=== PATIENT | female | born 1985 ===

== ENCOUNTER 2019-02-08 16:56 | Emergency (ER) | payer OTHER ==
[2019-02-08 17:19] VITALS: TEMP 98.4
[2019-02-08 17:51] LABS: BASO % 0.3 % (0.0-2.0); EOS # 0.2 K/uL (0.0-0.7); EOS % 2.4 % (0.0-4.0); HEMOGLOBIN 14.6 g/dL (11.0-16.0); LYMPH # 1.4 K/uL (1.0-4.3); LYMPH % 14.8 % (20.0-40.0); MEAN CELL VOLUME 87.8 fL (81.0-99.0); MEAN CORPUSCULAR HEMOGLOBIN 30.4 pg (27.0-31.0); MEAN CORPUSCULAR HGB CONC 34.6 g/dL (33.0-37.0); MONO # 0.6 K/uL (0.0-0.8); NEUT # 7.1 K/uL (1.8-7.0); NEUT % 76.5 % (50.0-75.0); NRBC % 0.1 % (0.0-2.0); RBC 4.79 Mil/uL (3.80-5.20); RED CELL DISTRIBUTION WIDTH 12.3 % (11.5-14.5); WHITE BLOOD COUNT 9.3 K/uL (4.8-10.8)
[2019-02-08 18:03] LABS: ALB/GLOB RATIO 1.4 (1.0-2.1); ALBUMIN 5.1 g/dL (3.5-5.0); ALT/SGPT 20 U/L (9-52); AST/SGOT 33 U/L (14-36); BLOOD UREA NITROGEN 9 mg/dL (7-17); CALCIUM 9.9 mg/dl (8.6-10.4); GFR NON-AFRICAN AMERICAN > 60; LIPASE 329 U/L (23-300)
[2019-02-08] MEDS ORDERED: Aluminum Hydroxide/Magnesium Hydroxide Susp (30 mL) PO STA (18:25)
[2019-02-08] MEDS ORDERED: Aluminum Hydroxide/Magnesium Hydroxide Susp (30 mL) ONE (18:31)
[2019-02-08 18:33] LABS: SQUAMOUS EPITHIAL 3 /hpf (0-5); URINE BACTERIA RARE (<OCC); URINE BILIRUBIN NEGATIVE (NEGATIVE); URINE BLOOD 3+ (NEGATIVE); URINE CLARITY Hazy (Clear); URINE COLOR Yellow (YELLOW); URINE GLUCOSE (UA) NORMAL (Normal); URINE LEUKOCYTE ESTERASE NEG Leu/uL (Negative); URINE PROTEIN NEGATIVE (NEGATIVE); URINE UROBILINOGEN NORMAL mg/dL (0.2-1.0)
--- NOTE | 2019-02-08 18:35 | C.PDOC ---
History Of Present Illness 33 year old healthy female presents to the emergency department with complaints of epigastric pain, vomiting, and nausea for the last 3-4 days. Patient states that she was seen by Dr. Barbosa and started on Protonix, with no improvement of symptoms. Patient states that her pain was "so bad" that she called an on-call doctor last night from Dr Barbosa's service, and he told her to take Zantac and Maalox. Patient reports she is still having pain and vomited once today despite taking those medications. no fever or chills. <Tana Stroud - Last Filed: 02/08/19 18:51> History Per: Patient History/Exam Limitations: no limitations Onset/Duration Of Symptoms: Days (3-4) Current Symptoms Are (Timing): Still Present Location Of Pain/Discomfort: Epigastric Quality Of Discomfort: "Pain" Associated Symptoms: Nausea, Vomiting. denies: Fever, Chills <Tana Stroud - Last Filed: 02/08/19 18:51> <Mark Greenfield - Last Filed: 02/08/19 23:12> Time Seen by Provider: 02/08/19 17:12 Chief Complaint (Nursing): Abdominal Pain Past Medical History Reviewed: Historical Data, Nursing Documentation, Vital Signs Vital Signs: Last Vital Signs Temp 98.4 F 02/08/19 17:02 Pulse 113 H 02/08/19 17:02 Resp 20 02/08/19 17:02 BP 136/86 02/08/19 17:02 Pulse Ox 99 02/08/19 17:02 Primary Care Provider: Non [facility] Provider, - Medical History PMH: No Chronic Diseases Surgical History: No Surg Hx Family History: States: No Known Family Hx - Social History Hx Alcohol Use: No Hx Substance Use: No - Immunization History Hx Tetanus Toxoid Vaccination: No Hx Influenza Vaccination: No Hx Pneumococcal Vaccination: No <Tana Stroud - Last Filed: 02/08/19 18:51> Vital Signs: Last Vital Signs Temp 98.4 F 02/08/19 17:02 Pulse 74 02/08/19 22:14 Resp 18 02/08/19 22:14 BP 105/67 02/08/19 22:14 Pulse Ox 100 02/08/19 22:14 <Mark Greenfield - Last Filed: 02/08/19 23:12> Review Of Systems Constitutional: Negative for: Fever, Chills Respiratory: Negative for: Cough, Shortness of Breath Gastrointestinal: Positive for: Nausea, Vomiting, Abdominal Pain. Negative for: Diarrhea Neurological: Negative for: Weakness, Numbness <Tana Stroud - Last Filed: 02/08/19 18:51> Physical Exam - Physical Exam Appears: Well, Non-toxic, No Acute Distress Skin: Normal Color, Warm, Dry Head: Atraumatic, Normacephalic Eye(s): bilateral: Normal Inspection, PERRL, EOMI Nose: Normal Oral Mucosa: Dry Neck: Normal, Supple Chest: Symmetrical, No Tenderness Cardiovascular: Rhythm Regular, No Murmur Respiratory: Normal Breath Sounds, No Rales, No Rhonchi, No Wheezing Gastrointestinal/Abdominal: Soft, Tenderness (epigastric), No Guarding, No Rebound Extremity: Normal ROM Neurological/Psych: Oriented x3 <Tana Stroud - Last Filed: 02/08/19 18:51> ED Course And Treatment - Laboratory Results Result Diagrams: 02/08/19 17:45 02/08/19 17:45 Lab Results: Total Bilirubin 1.7 mg/dL (0.2-1.3) H 02/08/19 17:45 AST 33 U/L (14-36) 02/08/19 17:45 ALT 20 U/L (9-52) 02/08/19 17:45 Alkaline Phosphatase 65 U/L (38-126) 02/08/19 17:45 Total Protein 8.7 g/dL (6.3-8.3) H 02/08/19 17:45 Albumin 5.1 g/dL (3.5-5.0) H 02/08/19 17:45 Globulin 3.7 gm/dL (2.2-3.9) 02/08/19 17:45 Albumin/Globulin Ratio 1.4 (1.0-2.1) 02/08/19 17:45 Lipase 329 U/L (23-300) H 02/08/19 17:45 O2 Sat by Pulse Oximetry: 99 (RA) Pulse Ox Interpretation: Normal <Tana Stroud - Last Filed: 02/08/19 18:51> - Laboratory Results Result Diagrams: 02/08/19 17:45 02/08/19 17:45 Lab Results: Total Bilirubin 1.7 mg/dL (0.2-1.3) H 02/08/19 17:45 AST 33 U/L (14-36) 02/08/19 17:45 ALT 20 U/L (9-52) 02/08/19 17:45 Alkaline Phosphatase 65 U/L (38-126) 02/08/19 17:45 Total Protein 8.7 g/dL (6.3-8.3) H 02/08/19 17:45 Albumin 5.1 g/dL (3.5-5.0) H 02/08/19 17:45 Globulin 3.7 gm/dL (2.2-3.9) 02/08/19 17:45 Albumin/Globulin Ratio 1.4 (1.0-2.1) 02/08/19 17:45 Lipase 329 U/L (23-300) H 02/08/19 17:45 Urine Color Yellow (YELLOW) 02/08/19 18:06 Urine Clarity Hazy (Clear) 02/08/19 18:06 Urine pH 6.0 (5.0-8.0) 02/08/19 18:06 Ur Specific [place] 1.005 (1.003-1.030) 02/08/19 18:06 Urine Protein Negative mg/dL (NEGATIVE) 02/08/19 18:06 Urine Glucose (UA) Normal mg/dL (Normal) 02/08/19 18:06 Urine Ketones Trace mg/dL (NEGATIVE) 02/08/19 18:06 Urine Blood 3+ (NEGATIVE) H 02/08/19 18:06 Urine Nitrate Negative (NEGATIVE) 02/08/19 18:06 Urine Bilirubin Negative (NEGATIVE) 02/08/19 18:06 Urine Urobilinogen Normal mg/dL (0.2-1.0) 02/08/19 18:06 Ur Leukocyte Esterase Neg Nicole/uL (Negative) 02/08/19 18:06 Urine WBC (Auto) 1 /hpf (0-5) 02/08/19 18:06 Urine RBC (Auto) 14 /hpf (0-3) H 02/08/19 18:06 Ur Squamous Epith Cells 3 /hpf (0-5) 02/08/19 18:06 Urine Bacteria Rare (<OCC) 02/08/19 18:06 Pulse Ox Interpretation: Normal Progress Note: spoke with the pt and she is aware of the cystic structure on her left adnexa. 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 Tolerating po Reevaluation Time: 23:06 Reassessment Condition: Improved <Mark Greenfield - Last Filed: 02/08/19 23:12> Medical Decision Making Medical Decision Making: Plan: Chemistry CBC Maalox Pepcid Zofran POC Urine Urinalysis US Abdomen <Tana Stroud - Last Filed: 02/08/19 18:51> Disposition Counseled Patient/Family Regarding: Studies Performed, Diagnosis, Need For Followup, Rx Given - Disposition Disposition Time: 19:00 <Tana Stroud - Last Filed: 02/08/19 18:51> Counseled Patient/Family Regarding: Studies Performed, Diagnosis, Need For Followup, Rx Given <Mark Greenfield - Last Filed: 02/08/19 23:12> - Disposition Referrals: Morgan Brabosa MD [Staff Provider] - [facility] [Outside] [facility] [Outside] Disposition: HOME/ ROUTINE Condition: FAIR Additional Instructions: Please return if symptoms recur. 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 - Scribe Statement The provider has reviewed the documentation as recorded by the Scribe (Edward Pavon) All medical record entries made by the Scribe were at my direction and pers onally dictated by me. I have reviewed the chart and agree that the record accurately reflects my personal performance of the history, physical exam, medical decision making, and the department course for this patient. I have also personally directed, reviewed, and agree with the discharge instructions and disposition. <Tana Stroud - Last Filed: 02/08/19 18:51> Physician Patient Turnover Patient Signed Over To: Mark Greenfield Handoff Comments: f/u ab ultrasound. re-eval pt, contact Dr Barbosa if needed <Tana Stroud - Last Filed: 02/08/19 18:51>
[2019-02-08 19:35] VITALS: O2SAT 100
[2019-02-08] MEDS ORDERED: Iodixanol 320 MG/ML 100 ML BOTTLE IV ONE (20:43)
[2019-02-08 22:14] VITALS: RESP 18
[2019-02-08 23:29] VITALS: BP 103/60; PULSE 80
--- NOTE | 2019-02-09 08:07 | CT ---
CT abdomen and pelvis HISTORY: Abdominal pain. Elevated lipase. Comparison: None available. TECHNIQUE: Multiple contiguous axial images were performed through the abdomen and pelvis with the use of intravenous contrast. Subsequently, sagittal and coronal reformatted images were obtained. This CT exam was performed using one or more of the following dose reduction techniques: Automated exposure control, adjustment of the mA and/or kV according to patient size, and/or use of iterative reconstruction technique. Findings: Lung bases are clear. No pleural or pericardial effusion. 6 millimeter low-attenuation lesion at the dome of the right hepatic lobe on series 3, image 18, too small to adequately characterize. Additional 7 millimeter low-attenuation lesion seen within the medial aspect of the right hepatic lobe on series 3, image 30 too small to adequately characterize. Gallbladder is preserved. Spleen is preserved. Adrenal glands are preserved. Pancreas is preserved. Upper abdominal bowel demonstrates a few distended and or mildly thickened loops of small bowel in the upper mid abdomen which may represent an enteritis. Clinical correlation. Right kidney: No calculi or hydronephrosis. Left Kidney: No calculi or hydronephrosis. Urinary bladder is preserved. Heterogeneous uterus and endometrium. Prominent bilobed cystic lesion seen at the level of the left adnexa measuring to 5.3 centimeters. Correlation with pelvic ultrasound may be helpful if clinically indicated. Underdistended and or mildly thickened sigmoid colon. Additional scattered areas of underdistention and or mild thickening at the level of the descending colon. Fluid-filled right hemicolon which may represent diarrheal illness. Few shotty mesenteric lymph nodes in the right demetrice abdomen. Appendix is visualized and is within normal limits. Few shotty para-aortic and inguinal lymph nodes. Mild degenerative changes in the spine. Impression: 1. 5.3 centimeter bilobed cystic lesion of the left adnexa. Correlation with pelvic ultrasound is recommended for further characterization of this lesion. Clinical correlation. 2. Distended and or mildly thickened loops of small bowel seen within the upper and mid abdomen which may represent an enteritis. Clinical correlation. 3. Fluid-filled right hemicolon which may represent diarrheal illness. Clinical correlation. 4. Few scattered areas of underdistention and or mild thickening in the left hemicolon as described above. Clinical correlation. Additional findings as above. A preliminary report was generated at 10:34 p.m. on 02/08/[address] Juan Wei from [employer]
--- NOTE | 2019-02-09 08:42 | US ---
Date of service: 02/08/2019 HISTORY: epigastric pain, abnl lft and lipase COMPARISON: None. TECHNIQUE: Sonographic evaluation of the right upper quadrant of the abdomen. FINDINGS: LIVER: Measures 11.7 cm in length. Normal echogenicity of the liver parenchyma. 8 x 8 x 9 mm simple cyst in left lobe of liver. No other mass. Smooth contour. No biliary dilatation. GALLBLADDER: Unremarkable. No gallstones. COMMON BILE DUCT: Measures 6 mm. No stones. No dilatation. PANCREAS: Unremarkable as visualized. No mass. No ductal dilatation. RIGHT KIDNEY: Measures 9.6 cm in length. Normal echogenicity. No calculus, mass, or hydronephrosis. AORTA: No aneurysmal dilatation. IVC: Unremarkable. OTHER FINDINGS: None . IMPRESSION: Incidental 9 mm simple cyst in left lobe of liver. No evidence of cholelithiasis or cholecystitis. Otherwise unremarkable. The preliminary findings for this examination were reported by [facility] at 8:22 p.m. on 02/08/2019. There is concurrence of this report with the preliminary findings.
== END 2019-02-08 23:32 | disposition home or self-care (01) ==
LOC: C.ER 16:56
DX: K52.9 Noninfective gastroenteritis and colitis, unspecified (principal); R10.13 Epigastric pain
CPT/HCPCS: 74177; 76705; 80053; 81001; 81025; 83690; 85025; 96374; 96375; 99285; J1885; Q9967

== ENCOUNTER 2019-02-13 11:45 | Emergency (ER) | payer OTHER ==
[2019-02-13 11:50] VITALS: O2SAT 100
[2019-02-13 12:54] LABS: BASO % 0.4 % (0.0-2.0); EOS # 0.2 K/uL (0.0-0.7); EOS % 2.3 % (0.0-4.0); HEMOGLOBIN 14.7 g/dL (11.0-16.0); LYMPH # 1.2 K/uL (1.0-4.3); LYMPH % 16.5 % (20.0-40.0); MEAN CELL VOLUME 89.1 fL (81.0-99.0); MEAN CORPUSCULAR HEMOGLOBIN 30.7 pg (27.0-31.0); MEAN CORPUSCULAR HGB CONC 34.4 g/dL (33.0-37.0); MEAN PLATELET VOLUME 9.2 fL (7.2-11.7); MONO # 0.5 K/uL (0.0-0.8); MONO % 6.8 % (0.0-10.0); NEUT # 5.6 K/uL (1.8-7.0); RBC 4.78 Mil/uL (3.80-5.20); RED CELL DISTRIBUTION WIDTH 12.2 % (11.5-14.5); WHITE BLOOD COUNT 7.6 K/uL (4.8-10.8)
[2019-02-13 13:01] LABS: HCG,QUALITATIVE URINE NEGATIVE (NEGATIVE)
[2019-02-13 13:04] LABS: SQUAMOUS EPITHIAL 1 /hpf (0-5); URINE BACTERIA RARE (<OCC); URINE BILIRUBIN NEGATIVE (NEGATIVE); URINE BLOOD 2+ (NEGATIVE); URINE CLARITY Clear (Clear); URINE COLOR Yellow (YELLOW); URINE GLUCOSE (UA) NORMAL (Normal); URINE LEUKOCYTE ESTERASE 1+ Leu/uL (Negative); URINE PROTEIN NEGATIVE (NEGATIVE); URINE UROBILINOGEN NORMAL mg/dL (0.2-1.0)
[2019-02-13 13:11] LABS: ALB/GLOB RATIO 1.6 (1.0-2.1); ALBUMIN 4.7 g/dL (3.5-5.0); ALT/SGPT 29 U/L (9-52); AST/SGOT 38 U/L (14-36); BLOOD UREA NITROGEN 11 mg/dL (7-17); CALCIUM 9.3 mg/dl (8.6-10.4); GFR NON-AFRICAN AMERICAN > 60; LIPASE 683 U/L (23-300)
[2019-02-13] MEDS ORDERED: Morphine 4 MG/ML VIAL IV ONE (13:32)
[2019-02-13] MEDS ORDERED: Aluminum Hydroxide/Magnesium Hydroxide Susp (30 mL) PO STA (13:32)
[2019-02-13] MEDS ORDERED: Aluminum Hydroxide/Magnesium Hydroxide Susp (30 mL) ONE (13:49)
[2019-02-13] MEDS ORDERED: Morphine 4 MG/ML VIAL ONE (13:49)
--- NOTE | 2019-02-13 14:07 | C.PDOC ---
History Of Present Illness 33 year old female presents to the emergency department with complaints of epigastric pain for one week. Patient was seen here on 02/08, where she was worked up and received a CT scan and ultrasound. Results were negative for gallbladder disease but showed some intestinal findings that could be enteritis. Patient was discharged at the time with pain medications and Flagyl. Patient also had a follow-up appointment with Dr. Barbosa who started her on Pantoprazole. Patient returned today stating the pain is severe, 10/10, sharp, constant, and non-radiating. Patient states that the pain is associated with vomiting one hour after eating. Patient denies fever, chills, dizziness, constipation, dysuria. Of note, patient has a follow-up appointment with Dr. Barbosa tomorrow. Time Seen by Provider: 02/13/19 13:18 Chief Complaint (Nursing): Abdominal Pain History Per: Patient History/Exam Limitations: no limitations Onset/Duration Of Symptoms: Other (1 week) Current Symptoms Are (Timing): Still Present Context: Food Severity: Severe Pain Scale Rating Of: 10 Location Of Pain/Discomfort: Epigastric Quality Of Discomfort: Sharp, "Pain" Associated Symptoms: Vomiting. denies: Fever, Chills, Nausea, Constipation Past Medical History Reviewed: Historical Data, Nursing Documentation, Vital Signs Vital Signs: Last Vital Signs Temp 98.1 F 02/13/19 13:55 Pulse 100 H 02/13/19 13:55 Resp 18 02/13/19 13:55 BP 134/83 02/13/19 13:55 Pulse Ox 100 02/13/19 13:55 Primary Care Provider: FAMILY PROVIDER,NO - Medical History PMH: No Chronic Diseases Surgical History: No Surg Hx Family History: States: No Known Family Hx - Social History Hx Alcohol Use: No Hx Substance Use: No - Immunization History Hx Tetanus Toxoid Vaccination: No Hx Influenza Vaccination: No Hx Pneumococcal Vaccination: No Review Of Systems Except As Marked, All Systems Reviewed And Found Negative. Constitutional: Negative for: Fever, Chills Gastrointestinal: Positive for: Vomiting, Abdominal Pain. Negative for: Diarrhea, Constipation Genitourinary: Negative for: Dysuria Neurological: Negative for: Dizziness Physical Exam - Physical Exam Appears: Non-toxic, In Acute Distress, Other (cooperative) Skin: Warm, Dry Head: Atraumatic, Normacephalic Eye(s): bilateral: Normal Inspection, PERRL, EOMI Nose: Normal Oral Mucosa: Moist Neck: Normal, Supple Chest: Symmetrical, No Tenderness Cardiovascular: Rhythm Regular, No Murmur Respiratory: Normal Breath Sounds, No Rales, No Rhonchi, No Wheezing Gastrointestinal/Abdominal: Soft, Tenderness (mild epigastric tenderness), No Guarding, No Rebound Extremity: Normal ROM Neurological/Psych: Oriented x3, Normal Speech, Normal Cognition ED Course And Treatment - Laboratory Results Result Diagrams: 02/13/19 12:44 02/13/19 12:44 Lab Results: Total Bilirubin 1.0 mg/dL (0.2-1.3) 02/13/19 12:44 AST 38 U/L (14-36) H 02/13/19 12:44 ALT 29 U/L (9-52) 02/13/19 12:44 Alkaline Phosphatase 64 U/L (38-126) 02/13/19 12:44 Total Protein 7.7 g/dL (6.3-8.3) 02/13/19 12:44 Albumin 4.7 g/dL (3.5-5.0) 02/13/19 12:44 Globulin 2.9 gm/dL (2.2-3.9) 02/13/19 12:44 Albumin/Globulin Ratio 1.6 (1.0-2.1) 02/13/19 12:44 Lipase 683 U/L (23-300) H 02/13/19 12:44 Urine Color Yellow (YELLOW) 02/13/19 12:44 Urine Clarity Clear (Clear) 02/13/19 12:44 Urine pH 5.0 (5.0-8.0) 02/13/19 12:44 Ur Specific [place] 1.017 (1.003-1.030) 02/13/19 12:44 Urine Protein Negative mg/dL (NEGATIVE) 02/13/19 12:44 Urine Glucose (UA) Normal mg/dL (Normal) 02/13/19 12:44 Urine Ketones 2+ mg/dL (NEGATIVE) H 02/13/19 12:44 Urine Blood 2+ (NEGATIVE) H 02/13/19 12:44 Urine Nitrate Negative (NEGATIVE) 02/13/19 12:44 Urine Bilirubin Negative (NEGATIVE) 02/13/19 12:44 Urine Urobilinogen Normal mg/dL (0.2-1.0) 02/13/19 12:44 Ur Leukocyte Esterase 1+ Nicole/uL (Negative) H 02/13/19 12:44 Urine WBC (Auto) 2 /hpf (0-5) 02/13/19 12:44 Urine RBC (Auto) 9 /hpf (0-3) H 02/13/19 12:44 Ur Squamous Epith Cells 1 /hpf (0-5) 02/13/19 12:44 Urine Bacteria Rare (<OCC) 02/13/19 12:44 Urine HCG, Qual Negative (NEGATIVE) 02/13/19 12:44 Urine HCG, Qual Negative (NEGATIVE) 02/13/19 12:44 O2 Sat by Pulse Oximetry: 100 (RA) Pulse Ox Interpretation: Normal Medical Decision Making Medical Decision Making: Plan: Chemistry CBC Urine Culture HCG Qualitative Urine Urinalysis Diagnosis: GERD Patient is not responding to her current medications. Patient will be treated with Pepcid, Maalox, and Morphine for pain. Disposition Counseled Patient/Family Regarding: Need For Followup - Disposition Referrals: Morgan Barbosa MD [Staff Provider] - [facility] [Outside] Disposition: HOME/ ROUTINE Disposition Time: 14:52 Condition: STABLE Forms: [employer] (Japanese), General Discharge Instructions, Work Excuse - POA Present On Arrival: None - Clinical Impression Clinical Impression: GERD with esophagitis - Scribe Statement The provider has reviewed the documentation as recorded by the Scribe (Edward Pavon) Provider Attestation: All medical record entries made by the Scribe were at my direction and personally dictated by me. I have reviewed the chart and agree that the record accurately reflects my personal performance of the history, physical exam, medical decision making, and the department course for this patient. I have also personally directed, reviewed, and agree with the discharge instructions and disposition.
[2019-02-13 15:38] VITALS: BP 148/88; PULSE 82; RESP 16; TEMP 99.3
== END 2019-02-13 15:37 | disposition home or self-care (01) ==
LOC: C.ER 11:45
DX: K21.0 Gastro-esophageal reflux disease with esophagitis (principal)
CPT/HCPCS: 80053; 81001; 83690; 84703; 85025; 87086; 96374; 99284; J2270